=== PATIENT | female | born 1985 | race Caucasian/White ===

== ENCOUNTER → 2021-01-21 | Outpatient (CLI) | payer BC ==
[~2021-01-21] MED LIST: IBU600 MG PO; PRENATAL TABLET PO
== END ==
LOC: ZCOL.LAB
DX: Z20.822 Contact with and (suspected) exposure to COVID-19 (principal)

== ENCOUNTER 2021-01-22 15:23 | Inpatient (IN) | payer BC ==
[2021-01-22] VITALS (18 sets, daily range): BP systolic 106–130; BP diastolic 53–77; PULSE 65–100; TEMP 98.5–99
[~2021-01-22] VITALS: Ht 167.6 cm; Wt 75.9 kg
--- NOTE | 2021-01-22 15:30 | NUR ---
1530- Pt arrives on unit. Oriented to room and given a clean gown to wear. Pt denies LOF and VB. Pt reports positive movement and contractions felt Q 3-5 minutes. 1533- FHR monitor and TOCO connected to pt. VS assessed and assessment completed. 1540- SVE /-2. Dr. Hernández updated, see physician notification.
[2021-01-22] MEDS ORDERED: PRENATAL TABLET PO (15:52)
--- NOTE | 2021-01-22 17:22 | NUR ---
1722-Patient sitting upright for epidural placement DEENA Antonio in room 1733-Test dose administered by DEENA Antonio. Patient tolerated well. VSS see anesthesia flow record. 175-Moreno to DD, clear yellow urine return, SVE 6-/-2. Dr. Gomez on unit updated. reviews chart and FHR monitor. 180-Dr. Gomez to patient room, SVE by /0 AROM per clear fluid. Reported of to LOUIS Tabares.
[2021-01-22 17:28] LABS: BASO % 0.2 % (0.0-2.0); EOS # 0.1 (0.0-0.7); EOS % 0.6 % (0-4.0); GRAN # 9.2 (1.4-6.5); GRAN % 73.9 % (42.2-75.2); HEMATOCRIT 39.5 % (37.0-47.0); HEMOGLOBIN 12.9 g/dl (12.5-16.0); LYMPH # 2.1 (1.2-3.4); LYMPH % 17.3 % (20.0-51.0); MEAN CELL VOLUME 88 fl (80.0-100.0); MEAN CORPUSCULAR HEMOGLOBIN 29 pg (27.0-31.0); MEAN CORPUSCULAR HGB CONC 33 g/dl (33.0-37.0); MEAN PLATELET VOLUME 11.2 fl (7.4-10.4); MONO # 0.9 (0.1-0.6); MONO % 6.9 % (1.7-9.3); PLATELET COUNT 180 K/mm3 (130-400); REDCELL DISTRIBUTION WIDTH-CV 14.8 % (11.5-14.5)
--- NOTE | 2021-01-22 19:11 | NUR ---
1854: SVE COMPLETE. AT NURSES STATION, NOTIFIED OF PT COMPLETE AND READY TO PUSH. TABLE/ROOM PREPARED FOR DELIVERY. 1910: DELIVERY OF VIABLE MALE INFANT AT THIS TIME. CORD CLAMPED X2 AND CUT BY . PLACED ON MATERNAL ABDOMEN. CARE OF ASSUMED BY SAMMY Lynne RN. 1913: SPONTANEOUS DELIVERY OF PLACENTA. PITOCIN STARTED PER PROTOCOL. FUNDUS FIRM AT UMBILICUS. LOCHIA WNL. NO CLOTS NOTED UPON INITIAL FUNDAL MASSAGE. WILL CONTINUE PP RECOVERY PER PROTOCOL.
[2021-01-23] VITALS: BP 109/61; PULSE 77; TEMP 98.7
[2021-01-23 04:25] VITALS: BP 110/64; PULSE 67; TEMP 97.7
[2021-01-23 07:30] VITALS: BP 107/59; PULSE 60; TEMP 97.2
--- NOTE | 2021-01-23 09:15 | NUR ---
Initial visit; Parents thanked Traffic Engineering Technician for offering congratulations and God's blessings for the of their son. Traffic Engineering Technician thanked family for choosing [facility].
[2021-01-23 12:18] VITALS: BP 98/60; PULSE 63; TEMP 97.9
[2021-01-23 16:12] VITALS: BP 101/56; PULSE 74; TEMP 97.5
[2021-01-23 20:00] VITALS: BP 111/55; PULSE 62; TEMP 98.2
[2021-01-24 07:40] VITALS: BP 101/56; PULSE 59; TEMP 97.8
[2021-01-24] MEDS ORDERED: IBU600 MG PO (09:09)
[2021-01-24 16:00] VITALS: BP 117/58; PULSE 66; TEMP 97.8
--- NOTE | 2021-01-24 17:37 | NUR ---
Reviewed discharge instructions with pt. Provided new prescriptions and instructed on follow up at 6 weeks. Denies questions.
== END 2021-01-24 17:55 | disposition home or self-care (01) | DRG 806 ==
LOC: LDRO 15:23 → LDR 17:00 → OB 22:30
PROVIDERS: ADMIT Student in an Organized Health Care Education/Training Program
PROC: 10E0XZZ Delivery of Products of Conception, External Approach (ICD-10-PCS; principal; 2021-01-22)
PROC: 0KQM0ZZ Repair Perineum Muscle, Open Approach (ICD-10-PCS; 2021-01-22)
PROC: 10907ZC Drainage of Amniotic Fluid, Therapeutic from Products of Conception, Via Natural or Artificial Opening (ICD-10-PCS; 2021-01-22)
DX: O98.82 Other maternal infectious and parasitic diseases complicating childbirth (principal); O99.12 Other diseases of the blood and blood-forming organs and certain disorders involving the immune mechanism complicating childbirth; Z37.0 Single live birth; Z3A.39 39 weeks gestation of pregnancy; O70.1 Second degree perineal laceration during delivery; D69.6 Thrombocytopenia, unspecified
CPT/HCPCS: J2540; J2590; J2795; J7120